=== PATIENT | male | born 1950 | race Hispanic/Latino ===

== ENCOUNTER → 2020-01-09 | Outpatient (CLI) | payer MEDICARE ==
[2019-12-13 16:12] LABS: BASOPHILS % 0.6 % (0.0-1.0); EOSINOPHILS % 0.5 % (0.0-6.0); HEMOGLOBIN 13.2 g/dL (14.0-18.0); LYMPHOCYTES # (AUTO) 1.6 (1.0-3.2); LYMPHOCYTES % 25.5 % (18.0-39.1); MEAN CORPUSCULAR HEMOGLOBIN 28.8 pg (28-32); MEAN CORPUSCULAR VOLUME 87.3 fL (81-99); MONOCYTES # (AUTO) 0.6 (0.2-0.8); MONOCYTES % 9.9 % (4.4-11.3); NEUTROPHILS # (AUTO) 3.9 (2.1-6.9); PLATELET COUNT 176 x10e3/uL (140-360); RED BLOOD COUNT 4.58 x10e6/uL (4.3-5.7); RED CELL DISTRIBUTION WIDTH 12.8 % (11.7-14.4)
[2019-12-13 16:34] LABS: ALANINE AMINOTRANSFERASE 21 IU/L (0-55); ALBUMIN 4.3 g/dL (3.5-5.0); ALBUMIN/GLOBULIN RATIO 1.5 (0.8-2.0); ALKALINE PHOSPHATASE 39 IU/L (40-150); BLOOD UREA NITROGEN 12 mg/dL (7-26); BUN/CREATININE RATIO 14 (6-25); CALCIUM 8.9 mg/dL (8.4-10.2); CARBON DIOXIDE 23 mmol/L (22-29); CHLORIDE 110 mmol/L (98-107); CREATININE, SERUM 0.85 mg/dL (0.72-1.25); EST GLOMERULAR FILTRATION RATE > 60 ML/MIN (60-); GLUCOSE 151 mg/dL (74-118); SODIUM 144 mmol/L (136-145)
[~2020-01-09] VITALS: Ht 175.3 cm; Wt 68.0 kg
[~2020-01-09] MED LIST: ASPIRIN325 MG PO; CLOPIDOGREL75 MG PO; CRESTOR10 MG PO; GLIPIZIDE5 MG PO; JANUVIA100 MG PO; JANUVIA50 MG PO; LEVOTHYROXINE50 MCG PO; LEVOTHYROXINE88 MCG PO; LOSARTAN POTAS100 MG PO; METFORMIN HCL500 MG PO; METOPROLOL SUCC25 MG PO; METOPROLOL TART25 MG PO; NITROSTAT0.4 MG SL; PANTOPRAZOLE SO40 MG PO; ULTRAM50 MG PO; ZETIA10 MG PO
[2020-01-14 12:15] VITALS: BP 143/69
== END ==
LOC: EDSTATUS 12-17 14:30 → LAB 05:00
PROVIDERS: ATTEND Internal Medicine Interventional Cardiology
DX: Z01.818 Encounter for other preprocedural examination (principal); I25.10 Atherosclerotic heart disease of native coronary artery without angina pectoris; Z53.8 Procedure and treatment not carried out for other reasons; Z11.59 Encounter for screening for other viral diseases
CPT/HCPCS: 36415; 80053; 85025; U0002 ×2

== ENCOUNTER → 2020-01-14 | Day surgery (SDC) | payer MEDICARE, OTHER ==
[2020-01-09 14:51] LABS: BASOPHILS % 0.6 % (0.0-1.0); EOSINOPHILS # (AUTO) 0.1 (0.0-0.4); EOSINOPHILS % 0.9 % (0.0-6.0); HEMATOCRIT 38.8 % (38.2-49.6); HEMOGLOBIN 12.9 g/dL (14.0-18.0); LYMPHOCYTES # (AUTO) 1.7 (1.0-3.2); LYMPHOCYTES % 24.4 % (18.0-39.1); MEAN CORPUSCULAR HEMOGLOBIN 29.2 pg (28-32); MEAN CORPUSCULAR HGB CONC 33.2 g/dL (31-35); MEAN CORPUSCULAR VOLUME 87.8 fL (81-99); MONOCYTES # (AUTO) 0.7 (0.2-0.8); MONOCYTES % 9.6 % (4.4-11.3); NEUTROPHILS # (AUTO) 4.5 (2.1-6.9); NEUTROPHILS % 64.1 % (38.7-80.0); PLATELET COUNT 181 x10e3/uL (140-360); RED BLOOD COUNT 4.42 x10e6/uL (4.3-5.7); RED CELL DISTRIBUTION WIDTH 13.1 % (11.7-14.4)
[2020-01-09 14:58] LABS: ALANINE AMINOTRANSFERASE 22 IU/L (0-55); ALBUMIN 4.3 g/dL (3.5-5.0); ALBUMIN/GLOBULIN RATIO 1.5 (0.8-2.0); ALKALINE PHOSPHATASE 39 IU/L (40-150); ANION GAP 12.6 mmol/L (8-16); BLOOD UREA NITROGEN 13 mg/dL (7-26); BUN/CREATININE RATIO 14 (6-25); CALCIUM 9.8 mg/dL (8.4-10.2); CARBON DIOXIDE 26 mmol/L (22-29); CHLORIDE 109 mmol/L (98-107); CREATININE, SERUM 0.95 mg/dL (0.72-1.25); EST GLOMERULAR FILTRATION RATE > 60 ML/MIN (60-); GLUCOSE 136 mg/dL (74-118); POTASSIUM 4.6 mmol/L (3.5-5.1); SODIUM 143 mmol/L (136-145)
[2020-01-14] VITALS (8 sets, daily range): BP systolic 76–155; BP diastolic 44–77
[~2020-01-14] MED LIST changes: +ALPRAZOLAM 0.5 MG TAB ONE; +DIPHENHYDRAMINE HCL 25 MG CAP ONE; +FENTANYL CITRATE/PF 100MCG/2 ML INJ ONE; +HEPARIN SOD/SOD CHLORIDE 2,000 ML ONE; +IOPAMIDOL 370 MG/ML 200 ML INFUS..BTL INJ ONE; +LIDOCAINE HCL 2% LOCAL 20 ML VIAL ONE; +MIDAZOLAM HCL 2 MG/2 ML VIAL ONE; +SODIUM CHLORIDE 0.9% 1000ML 1,000 ML ONE
--- NOTE | 2020-01-14 11:20 | NUR ---
1120 Pre procedural prep completed and handoff reported to [place] RN,blood glucose 123, ds/rn
--- NOTE | 2020-01-14 13:45 | NUR ---
1345pm RECEIVING NOTE [employer]............................................................... Bedside report received from [place] SAL. [id number]. Alert oriented and appropriate, PERRLA, respirations even and unlabored to room air. Pulses x4 extremities equal and strong. Pedal pulses PT/DP X4 and marked. Cap fill brisk < 3 sec. Rt Mynx site dry and intact No gross issues pain bp low on arrival additional 200cc iv bolus infusing. Skin warm and dry integrity appears D/I . IV 20g to left hand presents healthy w/o s/s of infiltration or complaint. Abdomen soft and supple. pt offered toileting, denies need to urinate or defecate. No personal affects with patient. Family at home. Pt and family verbalizes understanding of POC. Pre-Op Meds given . Side rails up call light at bedside.Bed brakes pm and call light at bedside. Currently w/o complaint of pain or need. theresa
--- NOTE | 2020-01-14 13:59 | Operative Report ---
DATE OF PROCEDURE: 01/14/2020 SURGEON: Narinder Marks MD INDICATIONS: Coronary artery disease, angina, abnormal stress test. PROCEDURES PERFORMED: 1. Left heart catheterization, selective coronary angiography. 2. Selective cannulation of one arterial and one venous bypass conduits. 3. Conscious sedation, 35 minutes. COMPLICATIONS: None. RECOMMENDATION: Medical therapy. DESCRIPTION OF PROCEDURE: Access was obtained in the right femoral artery. A 6-Norwegian sheath was placed. Left main widely patent. Left anterior descending and circumflex artery, 50% proximal stenosis. Right coronary artery stents were widely patent with 30% to 50% in-stent restenosis. Left internal mammary artery bypass widely patent. Stent in the saphenous vein bypass graft to the obtuse marginal branch was widely patent. No intervention deemed necessary. Right wrist repaired using Mynx closure device. The patient discharged home the same day. Narinder Marks MD [facility] /[id number]
--- NOTE | 2020-01-14 15:00 | NUR ---
1500 Hob elevated tolerated po and urinated qs. Called family for pickup at 1600pm ds/rn
--- NOTE | 2020-01-14 16:00 | NUR ---
1600p meets DC criteria. Rt groin mynx site assessed for s/s of complication and presence of hematoma. Skin warm, dry, no discolor, and pulses present. IV removed from left hand . Distal tip appears intact. VS WNL. Pt denies pain, sob, or need at this time. Family at [facility] for teaching. Review of discharge paperwork and follow up instructions. verbalized understanding. Pt to wheelchair and transported to front of hospital. Transferred to private vehicle under own strength w/o incident with DC paperwork in hand. - ds/rn
== END | disposition home or self-care (01) ==
LOC: CATH LAB 12:39
PROVIDERS: ATTEND Internal Medicine Interventional Cardiology
DX: I25.708 Atherosclerosis of coronary artery bypass graft(s), unspecified, with other forms of angina pectoris (principal); R94.39 Abnormal result of other cardiovascular function study; I10 Essential (primary) hypertension; R09.89 Other specified symptoms and signs involving the circulatory and respiratory systems; E78.00 Pure hypercholesterolemia, unspecified; Z88.6 Allergy status to analgesic agent; Z88.0 Allergy status to penicillin; Z88.8 Allergy status to other drugs, medicaments and biological substances; Z79.02 Long term (current) use of antithrombotics/antiplatelets; Z79.82 Long term (current) use of aspirin; Z79.84 Long term (current) use of oral hypoglycemic drugs; Z95.1 Presence of aortocoronary bypass graft
CPT/HCPCS: 36415 ×2; 80053; 82948; 85025; 93455; C1760; C1769; J2001; J2250; J3010; J7030; Q9967; 99152